=== PATIENT | female | born 1935 | race Caucasian/White ===

== ENCOUNTER 2023-12-25 19:30 | Emergency (ER) | payer MEDICARE, SELFPAY ==
[2023-12-25 19:35] VITALS: BP 160/70; PULSE 70; RESP 20; TEMP 36.6; O2SAT 97; BMI 25.4
--- NOTE | 2023-12-25 19:57 | XR_ITS ---
The [address] [address] Patient Name: DOTTY MOODY MRN: [facility]:[id number] date: 1935 Sex: F Assigned Patient Location: ER Current Patient Location: ED.MAIN Accession/Order Number: [id number] Exam Date: 12/25/2023 20:04 Report Date: 12/25/2023 20:57 At the request of: VESNA BLANCA Procedure: XR chest 1V EXAM: XR chest 1V HISTORY: shortness of breath COMPARISON: None. TECHNIQUE: AP portable upright chest x-ray FINDINGS: Cardiac silhouette prominent accentuated by magnification. Lungs are clear without infiltrate or edema. No pleural effusion or pneumothorax. Scoliosis. XR/XR chest 1V IMPRESSION: Cardiac silhouette prominent accentuated by magnification. Lungs clear, no acute process. Electronically authenticated by: INGE MITCHELL Date: 12/25/2023 20:57
--- NOTE | 2023-12-25 19:57 | ECG_ITS ---
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
--- NOTE | 2023-12-25 20:07 | ED.GENADUL1 ---
HPI - General Adult General Chief complaint: Weakness Stated complaint: GENERAL WEAKNESS Time Seen by Provider: 12/25/23 19:40 Source: patient Mode of arrival: walk-in History of Present Illness HPI narrative: Patient presents with anxiety, sensation of shortness of breath, increased emotionality that began last night after she ingested a marijuana gummy to try and help with her insomnia. The tried the same thing and also had similar symptoms but his resolved rather quickly. Patient's symptoms continued throughout the night and into today. She denied any cough, fever, chills. chest pain/pressure/tightness. She denied any GI or symptoms. History of anxiety but doesn't take anything for it. Has a home nebulizer but denied hx of COPD/emphysema or lung disease. Related Data Home Medications Medication Instructions Recorded Confirmed atenolol 50 mg tablet mg 12/25/23 escitalopram oxalate 10 mg tablet mg 12/25/23 gabapentin 300 mg capsule mg 12/25/23 linagliptin 5 mg tablet (Tradjenta) mg 12/25/23 losartan 25 mg tablet mg 12/25/23 rosuvastatin 5 mg tablet mg 12/25/23 triamterene 37.5 tab 12/25/23 mg-hydrochlorothiazide 25 mg tablet PFSH PFSH Social History Smoking status: Never smoker Exam Narrative Exam Narrative: Nurses notes and vital signs reviewed and patient is not hypoxic. Afebrile General: Well-appearing and in no apparent distress. Skin: Warm, dry, no pallor noted. Eye: Pupils are equal, round and EOMI. No scleral icterus. Ears, Nose, Mouth, and Throat: Oral mucosa is moist Cardiovascular: Regular Rate and Rhythm without murmur, gallop or rub. Respiratory: No accessory muscle use or respiratory distress. Lungs are clear to auscultation, no wheezing, rales or rhonchi Musculoskeletal: normal ROM, no calf or popliteal tenderness, no lower extremity edema/swelling GI: Abdomen is soft, non-distended. Normal bowel sounds. No tenderness to palpation. No rebound, guarding, or rigidity noted. Neurological: A&O x4. No cranial nerve dysfunction observed. No truncal ataxia. Moves all extremities. Sensation intact. Psychiatric: Cooperative and interactive. Normal mood and affect. Constitutional Vital Signs, click to edit/add: Last Vital Signs Temp 97.9 F 12/25/23 19:35 Pulse 70 12/25/23 19:35 Resp 20 12/25/23 19:35 BP 160/70 H 12/25/23 19:35 Pulse Ox 97 12/25/23 19:35 O2 Del Method Room Air 12/25/23 19:35 Course Vital Signs Vital signs: Vital Signs Temperature 97.9 F 12/25/23 19:35 Pulse Rate 70 12/25/23 19:35 Respiratory Rate 20 12/25/23 19:35 Blood Pressure 160/70 H 12/25/23 19:35 Pulse Oximetry 97 12/25/23 19:35 Oxygen Delivery Method Room Air 12/25/23 19:35 Temperature 97.9 F 12/25/23 19:35 Pulse Rate 70 12/25/23 19:35 Respiratory Rate 20 12/25/23 19:35 Blood Pressure 160/70 H 12/25/23 19:35 Pulse Oximetry 97 12/25/23 19:35 Oxygen Delivery Method Room Air 12/25/23 19:35 Medical Decision Making MDM Narrative Medical decision making narrative: Patient was placed on satellite project site monitor and EKG obtained. Blood drawn and sent for evaluation. Portable chest x-ray obtained. She was given Xanax for her anxiety. CBC with slightly decreased white blood cell count at 3.9. Hemoglobin 10.9. Normal platelets. CMP notable for slightly elevated BUn and CR, otherwise unremarkable. Negative troponin. BNP elevated at 3018 - Unremarkable chest x-ray. Swabs for covid and influenza were negative. Her symptoms are associated with the use of a marijuana gummy . BNP elevated of uncertain significance in light of EKG without PHUC or dep ischemic changes, normal troponin, CXR without pulmonary edema and no central or peripheral sign of edema on exam. Patient felt better after getting Xanax in the ED. Informed of results, given reassurance and discharged home. Lab Data Lab results reviewed: Yes I reviewed the patient's lab results Labs: Lab Results 12/25/23 12/25/23 Range/Units 20:15 20:23 WBC 3.9 L (4.0-11.0) 10^3/uL RBC 3.86 L (4.20-5.40) 10^6/uL Hgb 10.9 L (12.0-16.0) g/dL Hct 33.5 L (36.0-48.0) % MCV 86.8 (81.0-99.0) fL MCH 28.2 (26.7-34.0) pg MCHC 32.5 (29.9-35.2) g/dL RDW 13.5 (11.0-15.0) % Plt Count 222 (150-450) 10^3/uL MPV 10.9 (9.5-13.5) fL Seg Neuts % (Manual) 94.0 Band Neutrophils % 0.0 (0-5) % Lymphocytes % (Manual) 5.0 L (20.5-60.0) % Atypical Lymphs % (Man) 1.0 % Monocytes % (Manual) 0.0 L (1.7-12.0) % Eosinophils % (Manual) 0.0 L (0.9-7.0) % Basophils % (Manual) 0.0 L (0.2-2.0) % Neutrophils # (Manual) 3.66 (1.4-6.5) 10^3/uL Band Neutrophils # 0.0 (0.0-0.3) 10^3/uL Lymphocytes # (Manual) 0.19 L (1.20-3.80) 10^3/uL Abs Atypical Lymphs Man 0.03 Monocytes # (Manual) 0.00 L (0.30-0.80) 10^3/uL Eosinophils # (Manual) 0.00 (0.00-0.70) 10^3/uL Basophils # (Manual) 0.00 (0.00-0.10) 10^3/uL Sodium 136 (136-145) mmol/L Potassium 4.1 (3.5-5.1) mmol/L Chloride 103 (98-107) mmol/L Carbon Dioxide 23.5 (21.0-32.0) mmol/L Anion Gap 13.6 BUN 20.0 H (7.0-18.0) mg/dL Creatinine 1.21 H (0.55-1.02) mg/dL Est GFR ( Amer) 51 L (>=60) Est GFR (Non-Af Amer) 42 L (>=60) BUN/Creatinine Ratio 16.5 Glucose 216 H (74-106) mg/dL Calcium 9.1 (8.5-10.1) mg/dL Total Bilirubin 0.5 (0.2-1.0) mg/dL AST 23 (15-37) U/L ALT 18 (14-59) U/L Alkaline Phosphatase 67 (46-116) U/L Troponin I High Sens 10.4 (4.0-51.3) pg/mL NT-Pro-B Natriuret Pep 3018.0 H* (<=1800.0) pg/mL Total Protein 6.8 (6.4-8.2) g/dL Albumin 2.8 L (3.4-5.0) g/dL Globulin 4.0 g/dL Albumin/Globulin Ratio 0.7 Influenza Type A Ag Negative Influenza Type B Ag Negative SARS-CoV-2 Ag (CV2AG) Negative (NEGATIVE) Imaging Data Chest x-ray: Radiologist's impression: ITS Impressions Chest X-Ray 12/25/23 19:57 IMPRESSION: Cardiac silhouette prominent accentuated by magnification. Lungs clear, no acute process. Electronically authenticated by: INGE MITCHELL Date: 12/25/2023 20:57 ECG Data Attestation: I personally reviewed and interpreted this ECG as follows: Interpretation: EKG interpretation: Emergency Department physician interpretation. Normal sinus rhythm at 60bpm. Right ventricular hypertrophy, T wave inversion in leads I and aVL. No ST segment elevation or depression. Discharge Plan Discharge Stand Alone Forms: Portal Instructions Chief Complaint: Weakness Clinical Impression: Anxiety Patient Disposition: Home, Self-Care Time of Disposition Decision: 21:28 Prescriptions / Home Meds: No Action losartan 25 mg tablet gabapentin 300 mg capsule triamterene-hydrochlorothiazid 37.5-25 mg tablet atenolol 50 mg tablet escitalopram oxalate 10 mg tablet rosuvastatin 5 mg tablet Tradjenta 5 mg tablet Instructions: Anxiety (ED) Referrals: ANGELES WILKINSON [Primary Care Provider] - 1 week
--- NOTE | 2023-12-25 20:09 | PC.NURSE ---
Patient and report that they use marijuana gummies to help them sleep. Last night they tried a different kind and they both experienced increased anxiety and were unable to sleep after taking. The patient is very tearful at this time, she is shaking, she states that she is not ever a good sleeper and just wants to feel better and be able to sleep. She says that she is afraid that she is going to take the wrong medications at home and make things worse. Reassurance given that she is in the right place and we are going to do our best to make her feel better. Dr Rowland is updated on patient complaints and condition.
[2023-12-25] MEDS: ALPRAZOLAM 0.5 MG TABLET PO (20:21)
[2023-12-25 20:42] LABS: Hematocrit 33.5 % (36.0-48.0); Hemoglobin 10.9 g/dL (12.0-16.0); Mean Corpuscular HGB Conc 32.5 g/dL (29.9-35.2); Mean Corpuscular Hemoglobin 28.2 pg (26.7-34.0); Mean Corpuscular Volume 86.8 fL (81.0-99.0); Mean Platelet Volume 10.9 fL (9.5-13.5); Platelet Count 222 10^3/uL (150-450); Red Blood Count 3.86 10^6/uL (4.20-5.40); Red Cell Distribution Width 13.5 % (11.0-15.0); White Blood Count 3.9 10^3/uL (4.0-11.0)
[2023-12-25 21:03] LABS: Alanine Aminotransferase 18 U/L (14-59); Albumin Globulin Ratio 0.7; Albumin Level 2.8 g/dL (3.4-5.0); Alkaline Phosphatase 67 U/L (46-116); Anion Gap 13.6; Aspartate Amino Transferase 23 U/L (15-37); BUN Creatinine Ratio 16.5; Bilirubin Total 0.5 mg/dL (0.2-1.0); Calcium 9.1 mg/dL (8.5-10.1); Carbon Dioxide 23.5 mmol/L (21.0-32.0); Chloride 103 mmol/L (98-107); Estimated GFR (African America 51 (>=60); Estimated GFR (Non-African Ame 42 (>=60); Glucose 216 mg/dL (74-106); Potassium 4.1 mmol/L (3.5-5.1); Sodium 136 mmol/L (136-145); Total Protein 6.8 g/dL (6.4-8.2)
[2023-12-25 21:06] LABS: Influenza Virus A Antigen Negative; Influenza Virus B Antigen Negative; Internal Control Within Normal Limits
[2023-12-25 21:07] LABS: SARS-CoV-2 Ag NEGATIVE (NEGATIVE)
[2023-12-25 21:11] LABS: Troponin I High Sensitivity 10.4 pg/mL (4.0-51.3)
[2023-12-25 21:14] LABS: Atypical Lymphocytes Abs Man 0.03; Lymphocytes Absolute Manual 0.19 10^3/uL (1.20-3.80); Segmented Neut Absolute Manual 3.66 10^3/uL (1.4-6.5)
== END 2023-12-25 21:54 | disposition home or self-care (01) ==
PROVIDERS: Emergency Provider Emergency Medicine; PCP Internal Medicine
DX: F41.9 Anxiety disorder, unspecified (principal); Z20.822 Contact with and (suspected) exposure to COVID-19; Z79.899 Other long term (current) drug therapy; R06.02 Shortness of breath
CPT/HCPCS: 36415; 71045; 80053; 83880; 84484; 85007; 85027; 87804; 87811; 93005; 99285

== ENCOUNTER 2024-03-06 12:01 | Emergency (ER) | payer MEDICARE, SELFPAY ==
[2024-03-06 12:18] VITALS: BP 169/67; PULSE 56; TEMP 36.7; O2SAT 98
--- NOTE | 2024-03-06 12:35 | ECG_ITS ---
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
--- NOTE | 2024-03-06 12:46 | ED_ITS ---
HPI HPI - General Adult General Chief complaint: Nausea/Vomiting/Diarrhea Stated complaint: WEAKNESS, DIZZY Time Seen by Provider: 03/06/24 12:25 Source: patient and family Mode of arrival: Wheelchair Limitations: no limitations History of Present Illness HPI narrative: 88-year-old female presents to the emergency department for vague complaints. She is a very poor historian. She seems to be complaining of dizziness which is an ongoing issue for her and also nausea. She cannot be specific on her symptoms. Seem to have any chest pain or fever or cough. She has not had diarrhea or dysuria. She states she has been feeling anxious recently. When asked various questions she looks at her who is also unable to answer most of the questions. Related Data Home Medications ?Medication ?Instructions ?Recorded ?Confirmed atenolol 50 mg tablet mg 12/25/23 escitalopram oxalate 10 mg tablet mg 12/25/23 gabapentin 300 mg capsule mg 12/25/23 linagliptin 5 mg tablet (Tradjenta) mg 12/25/23 losartan 25 mg tablet mg 12/25/23 rosuvastatin 5 mg tablet mg 12/25/23 triamterene 37.5 tab 12/25/23 mg-hydrochlorothiazide 25 mg tablet Opioid HPI Opioid Management Most Recent Opioid Data: No Data to Display Review of Systems ROS Narrative Unable to be obtained, poor historian, age PFSH PFSH Social History Smoking status: Never smoker Exam Narrative Exam Narrative: Nurses note and vital signs reviewed and patient is not hypoxic. General: The patient appears in no apparent distress. Patient is resting comfortably on cart. Skin: Warm, dry, no pallor noted. There is no rash noted. Head: Normocephalic, atraumatic Eye: Normal conjunctiva, no drainage Ears, Nose, Mouth, and Throat: oral mucosa is moist. Nares patent. Cardiovascular: Regular Rate and Rhythm Respiratory: Patient is in no distress, no accessory muscle use, lungs are clear to auscultation, no wheezing, rales or rhonchi Back: non-tender, no CVA tenderness bilaterally to percussion. GI: Soft and on exam there is no tenderness mass or distention Musculoskeletal: The patient has no evidence of calf tenderness, no pitting edema, symmetrical pulses noted bilaterally Neurological: A&O x4, normal speech Psychiatric: Cooperative Constitutional Vital Signs, click to edit/add: Last Vital Signs Temp 98.0 F 03/06/24 12:18 Pulse 56 L 03/06/24 12:18 Resp 18 03/06/24 12:18 BP 169/67 H 03/06/24 12:18 Pulse Ox 98 03/06/24 12:18 O2 Del Method Room Air 03/06/24 12:18 Course Vital Signs Vital signs: Vital Signs Temperature 98.0 F 03/06/24 12:18 Pulse Rate 56 L 03/06/24 12:18 Respiratory Rate 18 03/06/24 12:18 Blood Pressure 169/67 H 03/06/24 12:18 Pulse Oximetry 98 03/06/24 12:18 Oxygen Delivery Method Room Air 03/06/24 12:18 Temperature 98.0 F 03/06/24 12:18 Pulse Rate 56 L 03/06/24 12:18 Respiratory Rate 18 03/06/24 12:18 Blood Pressure 169/67 H 03/06/24 12:18 Pulse Oximetry 98 03/06/24 12:18 Oxygen Delivery Method Room Air 03/06/24 12:18 Medical Decision Making MDM Narrative Medical decision making narrative: Her workup is negative. My clinical impression is that her anxiety is from the marijuana gummy. This has happened to her before and she was seen in this emergency department for the same issue. She was recommended to no longer take the marijuana Gummies. Lab Data Lab results reviewed: Yes I reviewed the patient's lab results Labs: Lab Results 03/06/24 Range/Units 12:24 WBC 6.8 (4.0-11.0) 10^3/uL RBC 4.20 (4.20-5.40) 10^6/uL Hgb 11.6 L (12.0-16.0) g/dL Hct 36.0 (36.0-48.0) % MCV 85.7 (81.0-99.0) fL MCH 27.6 (26.7-34.0) pg MCHC 32.2 (29.9-35.2) g/dL RDW 13.3 (11.0-15.0) % Plt Count 285 (150-450) 10^3/uL MPV 10.5 (9.5-13.5) fL Neut % (Auto) 74.8 (43.0-75.0) % Lymph % (Auto) 17.4 L (20.5-60.0) % Yell % (Auto) 6.0 (1.7-12.0) % Eos % (Auto) 1.0 (0.9-7.0) % Baso % (Auto) 0.7 (0.2-2.0) % Neut # (Auto) 5.1 (1.4-6.5) 10^3/uL Lymph # (Auto) 1.2 (1.2-3.8) 10^3/uL Yell # (Auto) 0.4 (0.3-0.8) 10^3/uL Eos # (Auto) 0.1 (0.0-0.7) 10^3/uL Baso # (Auto) 0.1 (0.0-0.1) 10^3/uL Abs Immat Gran (auto) 0.01 (0.00-0.03) 10^3/uL Imm/Tot Granulo (auto) 0.1 (0.0-0.5) % Sodium 139 (136-145) mmol/L Potassium 4.0 (3.5-5.1) mmol/L Chloride 105 (98-107) mmol/L Carbon Dioxide 26.6 (21.0-32.0) mmol/L Anion Gap 11.4 BUN 20.0 H (7.0-18.0) mg/dL Creatinine 1.03 H (0.55-1.02) mg/dL Est GFR ( Amer) >60 (>=60) Est GFR (Non-Af Amer) 51 L (>=60) BUN/Creatinine Ratio 19.4 Glucose 102 (74-106) mg/dL Calcium 8.8 (8.5-10.1) mg/dL Troponin I High Sens 18.4 (4.0-51.3) pg/mL ECG Data Attestation: I personally reviewed and interpreted this ECG as follows: (EKG on my interpretation shows sinus rhythm without acute) Discharge Plan Discharge Stand Alone Forms: Portal Instructions Chief Complaint: Nausea/Vomiting/Diarrhea Clinical Impression: Anxiety Patient Disposition: Home, Self-Care Time of Disposition Decision: 13:49 Condition: Good Mode of Transportation: Private Vehicle Prescriptions / Home Meds: No Action losartan 25 mg tablet gabapentin 300 mg capsule triamterene-hydrochlorothiazid 37.5-25 mg tablet atenolol 50 mg tablet escitalopram oxalate 10 mg tablet rosuvastatin 5 mg tablet Tradjenta 5 mg tablet Print Language: [place] Instructions: Anxiety (ED) Additional Instructions: Discontinue using marijuana gummies Referrals: ANGELES WILKINSON [Primary Care Provider] - 1 week
[2024-03-06] MEDS: ONDANSETRON PF 4 MG/2 ML VIAL IV (12:50)
[2024-03-06 13:11] LABS: Basophils Absolute Auto 0.1 10^3/uL (0.0-0.1); Basophils Percent Auto 0.7 % (0.2-2.0); Eosinophils Absolute Auto 0.1 10^3/uL (0.0-0.7); Hemoglobin 11.6 g/dL (12.0-16.0); Immature Granulocytes Abs Auto 0.01 10^3/uL (0.00-0.03); Immature Granulocytes Pct Auto 0.1 % (0.0-0.5); Lymphocytes Absolute Auto 1.2 10^3/uL (1.2-3.8); Lymphocytes Percent Auto 17.4 % (20.5-60.0); Mean Corpuscular HGB Conc 32.2 g/dL (29.9-35.2); Mean Corpuscular Hemoglobin 27.6 pg (26.7-34.0); Mean Corpuscular Volume 85.7 fL (81.0-99.0); Mean Platelet Volume 10.5 fL (9.5-13.5); Monocytes Absolute Auto 0.4 10^3/uL (0.3-0.8); Neutrophils Absolute Auto 5.1 10^3/uL (1.4-6.5); Neutrophils Percent Auto 74.8 % (43.0-75.0); Platelet Count 285 10^3/uL (150-450); Red Cell Distribution Width 13.3 % (11.0-15.0); White Blood Count 6.8 10^3/uL (4.0-11.0)
[2024-03-06 13:25] LABS: Anion Gap 11.4; BUN Creatinine Ratio 19.4; Calcium 8.8 mg/dL (8.5-10.1); Carbon Dioxide 26.6 mmol/L (21.0-32.0); Chloride 105 mmol/L (98-107); Estimated GFR (African America >60 (>=60); Estimated GFR (Non-African Ame 51 (>=60); Glucose 102 mg/dL (74-106); Sodium 139 mmol/L (136-145); Troponin I High Sensitivity 18.4 pg/mL (4.0-51.3)
[2024-03-06 14:09] VITALS: BP 145/74; PULSE 74; O2SAT 99
== END 2024-03-06 14:10 | disposition home or self-care (01) ==
PROVIDERS: Emergency Provider Emergency Medicine; PCP Internal Medicine
DX: F41.9 Anxiety disorder, unspecified (principal); R42 Dizziness and giddiness; R11.0 Nausea
CPT/HCPCS: 36415; 80048; 81001; 84484; 85025; 93005; 96374; 99284